=== PATIENT | male | born 1950 | race Caucasian/White ===

== ENCOUNTER 2017-05-25 04:25 | Inpatient (IN) ==
[2017-05-25] MEDS ORDERED: ASPIRIN PO STA (04:34)
--- NOTE | 2017-05-25 04:50 | PROVIDER DOCUMENTATION ---
HPI-General Adult - General Chief Complaint: Fever Stated Complaint: fever Time Seen by Provider: 05/25/17 04:33 Source: EMS Unable to obtain history due to:: urgency Allergies/Adverse Reactions: Patient Allergies Allergy/AdvReac Type Severity Reaction Status Date / Time No Known Allergies Allergy Verified 05/06/17 13:56 Home Medications: Home Medication List Medication Instructions Recorded Confirmed Last Taken Type Aspirin 325 mg PO QHS 05/06/17 05/25/17 05/24/17 21:00 History Calcium Carbonate/Vit D3 [Caltrate 1 each PO DAILY 05/06/17 05/25/17 05/24/17 07 :00 History 600 + D] Clonidine [Catapres] 0.2 mg PO TID 05/06/17 05/25/17 Unknown History Docusate Sodium [Colace] 100 mg PO DAILY 05/06/17 05/25/17 05/24/17 07:00 History Ergocalciferol (Vitamin D2) 50,000 unit PO DAILY 05/06/17 05/25/17 05/24/17 07: 00 History [Vitamin D] LISINOpril [Prinivil] 5 mg PO DAILY 05/06/17 05/25/17 05/24/17 21:00 History Lisinopril 10 mg PO DAILY 05/06/17 05/25/17 05/24/17 07:00 History Metformin [Glucophage] 500 mg PO BID CC 05/06/17 05/25/17 05/24/17 07:00 History Ondansetron HCl [Zofran] 4 mg PO PRN PRN 05/06/17 05/25/17 Unknown History SIMVAstatin [Zocor] 10 mg PO QHS 05/06/17 05/25/17 05/24/17 21:00 History Dextromethorphan HBr/Quinidine 1 each PO BID 05/25/17 05/25/17 05/24/17 21:00 History [Nuedexta 20-10 mg Capsule] - History of Present Illness -Gen Adult Nature of Presenting Problems: Sent here from [facility] for alleged fever. Temperature here is 98.4. They said his temperature there was 103. patient is stable and without complaint.s Location of Pain/Injury: reports: none Pain Radiation: reports: no radiation Quality of Pain: reports: none Severity: reports: mild Onset/Duration: reports: unsure Timing: reports: still present Context/Activities at Onset: reports: none Modifying Factors: improves with: nothing Associated Symptoms: reports: denies symptoms Similar Symptoms Previously?: No Recently seen or treated by another doctor?: No Review of Systems - Adult - REVIEW OF SYSTEMS - ADULT Constitutional: reports: no symptoms reported Eyes: reports: no symptoms reported Ears, Nose, Mouth & Throat: reports: no symptoms reported Cardiovascular: reports: no symptoms reported Respiratory: reports: no symptoms reported Gastrointestinal: reports: no symptoms reported Genitourinary: reports: no symptoms reported Musculoskeletal: reports: no symptoms reported Integumentary: reports: no symptoms reported Neurological: reports: no symptoms reported Psychiatric: reports: no symptoms reported Endocrine: reports: no symptoms reported Hematologic/Lymphatic: reports: no symptoms reported Allergic/Immunologic: reports: no symptoms reported All Other Systems: Reviewed and Negative Past History - Adult - PAST MEDICAL HISTORY-ADULT Review of Records: reports: Old Records Reviewed, Nursing Assessment Review, Medications Reviewed, Social history reviewed & non-contributory. Major Childhood Illnesses: reports: denies history Cardiovascular: reports: HTN, hyperlipidemia Respiratory: reports: denies history Gastrointestinal: reports: denies history Obstetrical/Gynecological: reports: denies history Genitourinary: reports: other (p) Musculoskeletal: reports: denies history Neurological: reports: CVA, stroke deficits, dementia, Seizures/Epilepsy, TIA Endocrine/Immune: reports: denies history Other Conditions: reports: denies history - PRIOR SURGERIES/PROCEDURES Surgical/Procedure History: reports: none - IMMUNIZATION STATUS Childhood Immunizations: See Nurse Assessment Flu Vaccine: See Nurse Assessment - FAMILY HISTORY Family History: reviewed, not pertinent Physical Exam-General - PHYSICAL EXAM-ADULT Initial Vital Signs Reviewed: Yes - CONSTITUTIONAL General Appearance: appears well - EYES Eyes: PERRL/EOMI, pink conjunctivae - HEAD, EARS, NOSE, MOUTH & THROAT HENMT: normocephalic/atraumatic, moist mucous membranes - NECK Neck: non-tender - RESPIRATORY Respiratory: chest non-tender, lungs clear - CARDIOVASCULAR Cardiovascular: regular rate, rhythm - GASTROINTESTINAL (ABDOMEN) Abdominal Exam: normal bowel sounds, non tender - LYMPHATIC Lymphatic: no adenopathy, axilla node tender - MUSCULOSKELETAL Back Exam: normal inspection, no CVA tenderness Extremity: normal range of motion, non-tender - SKIN Integumentary: normal color, normal turgor - NEUROLOGIC 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, grossly normal - PSYCHIATRIC Psych/Mental Status: normal mood/affect, normal thought content Progress - PLAN OF CARE/RESULTS Progress/Plan/Lab Results: Orders Category Date Time Status Cardiac Monitoring DIRECTED Care 05/25/17 04:34 Active Saline Loc NOW Care 05/25/17 04:34 Active CBC WITH ELECTRONIC DIFF [HEME] Stat Lab 05/25/17 04:34 Uncollected CK PROFILE [SP CHEM] Stat Lab 05/25/17 04:34 Uncollected COMPREHENSIVE METABOLIC PANEL [CHEM] Stat Lab 05/25/17 04:34 Uncollected D-DIMER [CHEM] Stat Lab 05/25/17 04:34 Uncollected MAGNESIUM [CHEM] Stat Lab 05/25/17 04:34 Uncollected PRO B-NATRIURETIC PEPTIDE Stat Lab 05/25/17 04:34 Uncollected PROTIME WITH INR [COAG] Stat Lab 05/25/17 04:34 Uncollected PTT [COAG] Stat Lab 05/25/17 04:34 Uncollected TROPONIN T Stat Lab 05/25/17 04:34 Uncollected Aspirin Med 05/25/17 04:34 Discontinued 325 mg PO STAT STA EKG [EKG] Stat Ther 05/25/17 04:34 Ordered Result Diagrams: 05/25/17 04:32 05/25/17 04:32 - CONSULTS/PCP/HOSPITALIST Notification #1 *Consult/PCP/Hospitalist*: Hospitalist Time Discussed: 07:18 Reason/Comments: Admission Consult Disposition: Admit Departure - Departure Date of Disposition Decision: 05/25/17 Time of Disposition Decision: 07:18 DIAGNOSIS: Acute hypernatremia, UTI (urinary tract infection) Disposition: ADMITTED INPATIENT 09 Certified Medical Emergency: Emergent Condition: Fair Referrals and Follow-Ups: Braxton Ruffin MD [Primary Care Provider] - - Critical Care Note This patient required my direct & personal management of CC.: No Attestation - Physician/ ARIA Attestation The physician spent face to face time with patient:: Yes Advanced Practice Provider documentation review:: Supervising physician onsite and consulted in the evaluation and care of this patient. The physician did have a face to face encounter with the patient.
[2017-05-25 04:58] LABS: MANUAL DIFF NEEDED? NO
[2017-05-25 05:00] LABS: BASO% 0.3 % (0.0-0.8); EOS# 0.04 X1000 (0.0-0.7); EOS% 0.3 % (0.0-10.0); HEMATOCRIT 46.7 % (42.0-52.0); HEMOGLOBIN 14.9 g/dL (14.0-18.0); IMM GRAN# 0.02 X1000 (0.0-0.04); IMM GRAN% 0.2 % (0.0-0.5); LYMPH# 1.84 X1000 (1.2-3.4); LYMPH% 15.7 % (20.5-51.1); MCH 28.7 PG (27-31); MCHC 31.9 g/dL (33-37); MCV 89.8 FL (81-99); MONO# 0.62 X1000 (0.11-0.59); MONO% 5.3 % (1.7-9.3); NEUT% 78.2 % (42.2-75.2); PLT 312 X1000 (130-400)
[2017-05-25 05:08] LABS: URINE SOURCE CATH
[2017-05-25 05:18] LABS: INR 1.2; PROTIME 12.7 Seconds (9.2-11.7); PTT 25.2 Seconds (22.0-36.0)
[2017-05-25 05:27] LABS: ALBUMIN 3.4 g/dL (3.5-5.0); CALCIUM 9.6 mg/dL (8.8-10.2); POTASSIUM 3.9 mmol/L (3.5-5.1); TOTAL BILIRUBIN 0.53 mg/dL (0.20-1.00); TOTAL PROTEIN 8.8 g/dL (6.3-8.3)
[2017-05-25 05:33] LABS: BILIRUBIN URINE NEGATIVE (NEGATIVE); BLOOD URINE LARGE (NEGATIVE); COLOR ORANGE; GLUCOSE URINE NEGATIVE (NEGATIVE); LEUKOCYTES URINE LARGE (NEGATIVE); NITRITE URINE NEGATIVE (NEGATIVE); PH URINE 5.5; PROTEIN URINE 50 mg/dL (NEGATIVE); SP GRAVITY URINE 1.018; TURBIDITY URINE HAZY (CLEAR); UROBILINOGEN URINE NORMAL (NORMAL)
[2017-05-25 05:35] LABS: URINE MICRO REVIEW NEEDED? YES
[2017-05-25 05:45] LABS: UR EPITHELIAL CELLS <10 /HPF (<10); URINE BACTERIA 4+ /HPF; URINE CULTURE NEEDED? YES; URINE RBC TNTC /HPF (<10); URINE WBC TNTC /HPF (<10)
[2017-05-25] MEDS ORDERED: NS 500 ML IV ONE (05:47)
[2017-05-25] MEDS ORDERED: GENTAMICIN 80 MG/NS 80 MG/50 ML IVPB IV ONE (05:48)
[2017-05-25 05:53] LABS: URINE CASTS WHITE CELL PRESENT
[2017-05-25] MEDS ORDERED: POTASSIUM CHLORIDE 10 MEQ in D5W 1,000 ML IV ONE (07:11)
[2017-05-25 08:32] LABS: PROTEIN CREAT RATIO 0.3; UR CREAT RANDOM 186.8 mg/dL (14-26); UR PROT RANDOM 55.5 mg/dL
[2017-05-25] MEDS ORDERED: D5W 1,000 ML IV ONE (08:34)
[2017-05-25] MEDS ORDERED: ZOFRAN PO PRN (08:34)
[2017-05-25] MEDS ORDERED: CATAPRES PO SCH (09:00)
--- NOTE | 2017-05-25 09:09 | EKG Report ---
Test Performed on : 05/25/2017 08:48:54 AM Test Reason : irregular rhythm Blood Pressure : / mmHG Vent. Rate : 102 BPM Atrial Rate : 102 BPM P-R Int : 152 ms QRS Dur : 094 ms QT Int : 402 ms P-R-T Axes : 010 -54 056 degrees QTc Int : 523 ms Sinus tachycardia. with premature supraventricular complexes. Left axis deviation Prolonged QT Abnormal ECG When compared with ECG of 25-MAY-2017 08:48, (Unconfirmed) No significant change was found Confirmed by Jer Bettencourt MD ([id number]) on 05/27/2017 6:24:51 PM
--- NOTE | 2017-05-25 09:35 | Diag Imaging Result Doc PS360 ---
EXAM: CT HEAD W/O CONTRAST TECHNIQUE: Dose reduction protocol was used. INDICATION: ams/worsening dysphagia COMPARISON: 05/06/2017 FINDINGS: There is diffuse brain atrophy and there is extensive white matter microangiopathy, stable. There are a few chronic lacunar infarcts in the periventricular white matter, brainstem, and deep wolf matter, stable. There is no definite acute infarct given the limited sensitivity of CT versus MRI. There is no discrete intracranial mass, mass effect, or intracranial hemorrhage. The surrounding soft tissues and bony structures are essentially unremarkable. IMPRESSION: Stable advanced chronic changes. No definite acute intracranial pathology by CT. Electronically signed by Rachid 05/25/2017 9:33 AM
--- NOTE | 2017-05-25 10:13 | HISTORY AND PHYSICAL ---
CHIEF COMPLAINT: Reported fever. HISTORY OF PRESENT ILLNESS: Mr. Hebert is a 67-year-old, gentleman with a history of a CVA in the past with persistent left hemiparesis, aphasia, and dysphagia, who presents from [facility] with a reported fever of 103 degrees Fahrenheit. The patient is aphasic and is unable to give any type of history. His family is at the bedside but the history is very limited. Apparently, he was sent for a fever but when he got here, his temperature was noted to be 98.9. However, when labs were checked, he was noted to have a sodium of 162, an acute kidney injury with a creatinine of 1.5, a mildly elevated white count, and a significant urinary tract infection. The family does report that he has been more lethargic over the past few days and weeks. He has also been having significantly worse dysphagia. He coughs quite often when he eats. In the ER, his vitals are stable. He is slightly tachycardic but his blood pressure, pulse oximetry, and temperature are all within normal limits. As such, he is going to be admitted to the floor for further treatment and evaluation. PAST MEDICAL HISTORY: 1. CVA with left-sided hemiparesis, aphasia, and dysphagia. 2. Diabetes mellitus. 3. Hypertension. 4. BPH. 5. Dementia. SURGICAL HISTORY: None. SOCIAL HISTORY: There is no apparent history of tobacco, alcohol, or drug use. Patient is a Gnosticism and he has advanced directive refusing any blood products if needed. FAMILY HISTORY: Unknown. REVIEW OF SYSTEMS: Unable to obtain. ALLERGIES: No known drug allergies. HOME MEDICATIONS: Aspirin 325 mg daily, calcium carbonate, vitamin D3 one daily , clonidine 0.2 mg t.i.d., dextromethorphan quinidine 1 b.i.d., Colace 100 mg daily, vitamin D2 50, 000 units p.o. daily, lisinopril 10 mg daily, Glucophage 500 mg b.i.d., Zofran 4 mg as needed, Zocor 10 mg p.o. at bedtime. PHYSICAL EXAMINATION: VITAL SIGNS: Blood pressure is 143/84, heart rate is 101, respiratory rate is 16, O2 saturation 98% on 2 L, temperature is 97.7 degrees. GENERAL: This is a chronically ill and disheveled appearing, 67-year-old, male lying in the hospital bed in no acute distress. NEUROLOGIC: The patient is aphasic. He has left-sided cathleen-neglect along with left-sided hemiparesis. He does follow commands on the right with muscle strength 4/5 in the upper and lower right extremities. HEENT: Head is atraumatic and normocephalic. His pupils are equal, round, and reactive to light. Oral mucosa is dry. Trachea is midline. There is no JVD. No carotid bruits. CHEST: Clear to auscultation bilaterally. CV: Irregular, S1 and S2 noted, a 2/6 murmur noted. GI: Soft, nondistended. Bowel sounds positive. EXTREMITIES: No edema, clubbing, or cyanosis. Pulses diminished but palpable. DIAGNOSTIC DATA: WBC 11.7, hemoglobin 14.9, hematocrit 46.7, platelet count 312 ,000. INR 1.2. Sodium 162, potassium 3.9, chloride 121, CO2 24, anion gap 16, BUN 51, creatinine 1.5, glucose 287, magnesium 3, and calcium 9.6. Total bilirubin 0.53, AST 16, ALT 15, alkaline phosphatase 80. CK 190, troponin 0.023. Protein 8.8, albumin 3.4. TSH 0.81. Lactic acid 1.4. UA shows significant urinary tract infection. ASSESSMENT AND PLAN: 1. Early sepsis: The patient is tachycardic and has a white count of almost 12 and a source of urinary tract infection. His lactic acid is within normal limits and his hemodynamics are stable. We will continue intravenous fluids and Rocephin for his urinary tract infection. Cultures are pending. 2. Hypernatremia: This is likely secondary to decreased oral intake of fluids. We will check urine studies and continue with D5 W intravenous fluids that have been started in the emergency room. We will recheck another BMP tonight and then daily. 3. Acute kidney injury: Likely prerenal in the setting of lisinopril and metformin use. We will hold on those drugs, continue intravenous fluids, and check urine electrolytes. If he does not have an improvement within the next 12-24 hours, would consider renal ultrasound. 4. Urinary tract infection: As above. 5. Worsening dysphagia: We are going to check a head CT and a barium swallow as well as obtain speech and social service consults. We will keep him nothing per oral for now. 6. Hypertension: We will hold his lisinopril and continue his clonidine. 7. Diabetes Mellitus: Add SSI and PBS, check Ha1c in the AM. 8. Deep vein thrombosis prophylaxis will be provided with Lovenox. The patient is a do-not- resuscitate level 1 and if he should need blood products, those will be refused as he is a Gnosticism. Dictated by TOBIAS Jha for Rodrigo Morales MD Addendum: Patient seen and examined by myself. Agree with TOBIAS note. It reflects my assessment and plan. Patient was sent from group home for fever. Here in ER he was found to have a severe dehydration, early sepsis, hyponatremia, urinary tract infection and acute renal failure. Will start IV antibiotics, D5W and will do swallow test. I informed family that if he fails swallow evaluation we may need to place PEG tube. Will also check BMP daily. Because of blood pressure in the 110 and 130 I prefer to hold any antihypertensive agents. Will continue to monitor closely. cc: TOBIAS Jha MD [facility]
[2017-05-25] MEDS: ROCEPHIN 1 GM in NS 50 ML IV SCH (10:28)
[2017-05-25] MEDS: HUMALOG SUBQ SCH ×3 (11:52→21:05)
[2017-05-25] MEDS ORDERED: ZOFRAN IV PRN (12:51)
--- NOTE | 2017-05-25 13:59 | Diag Imaging Result Doc PS360 ---
EXAM: BA SWALLOW W/VIDEO SPEECH THER INDICATION: worsening dysphagia TECHNIQUE: COMPARISON: None. FINDINGS: Due to the patient's condition, there was suboptimal positioning. Also, the patient could not swallow an adequate amount of contrast. As such, this study is very suboptimal and virtually nondiagnostic. There is no discrete aspiration with the very small amount of contrast that could be administered. There did appear to be delayed swallowing reflex, however. IMPRESSION: Very limited study due to the patient's condition. Please see above discussion and speech pathology for full details. Electronically signed by Rachid 05/25/2017 1:57 PM
[2017-05-25] MEDS ORDERED: DIFLUCAN 150 MG/NS 150 MG/75 ML IVPB IV ONE (14:30)
[2017-05-25] MEDS: D5W 1,000 ML IV SCH ×2 (17:14→21:40)
[2017-05-25 18:14] LABS: AGAP 13; BUN 42 mg/dL (8-22); CALCIUM 9.4 mg/dL (8.8-10.2); CHLORIDE 123 mmol/L (98-107); COSMO 336; POTASSIUM 3.6 mmol/L (3.5-5.1); SODIUM 159 mmol/L (136-145); TCO2 23 mmol/L (25-35)
[2017-05-25] MEDS ORDERED: ASPIRIN PO SCH (21:00)
[2017-05-26] MEDS ORDERED: VANCOMYCIN 1 GM/NS 1 GM/250 ML IVPB IV ONE (02:23)
[2017-05-26] MEDS ORDERED: VANCOMYCIN IV PER PHARMACY MISC SCH (02:30)
[2017-05-26] MEDS ORDERED: VANCOMYCIN IV ONE (03:00)
[2017-05-26] MEDS ORDERED: D5W IV ONE (03:00)
[2017-05-26] MEDS: HUMALOG SUBQ SCH ×4 (05:58→21:40)
[2017-05-26 07:09] LABS: HEMATOCRIT 43.2 % (42.0-52.0); HEMOGLOBIN 13.4 g/dL (14.0-18.0); MCV 93.5 FL (81-99); RBC 4.62 XMIL (4.7-6.1)
[2017-05-26 07:39] LABS: AGAP 11; BUN 36 mg/dL (8-22); CALCIUM 8.7 mg/dL (8.8-10.2); CHLORIDE 120 mmol/L (98-107); COSMO 330; HDL 19 mg/dL (35-55); HEMOGLOBIN A1C 7.2 % (4.8-6.0); LDL 74 mg/dL; POTASSIUM 3.3 mmol/L (3.5-5.1); SODIUM 156 mmol/L (136-145); TCO2 25 mmol/L (25-35); TRIGLYCERIDES 88 mg/dL (39-160); VLDL 18 mg/dL
[2017-05-26] MEDS: D5W 1,000 ML IV SCH ×2 (08:40→21:36)
[2017-05-26] MEDS: ROCEPHIN 1 GM in NS 50 ML IV SCH (08:42)
[2017-05-26] MEDS: LOVENOX SUBQ SCH (08:42)
[2017-05-26] MEDS: POTASSIUM CHLORIDE 20 MEQ/SWI 20 MEQ/100 ML IVPB IV SCH ×2 (11:02→13:22)
--- NOTE | 2017-05-26 12:55 | PROGRESS NOTE ---
DATE: 05/26/2017 SUBJECTIVE: This patient is resting comfortably in bed. He is able to answer my questions by moving his head for yes or no. He is not talking to me. His blood sodium is high at 156 and this patient is on D5W. We will continue with the same management. He has a past medical history of CVA with left-sided hemiparesis, aphasia, and dysphagia. We will get another swallow evaluation to see if this patient is able to eat. His blood sugar has been elevated. I will put this patient on Lantus 15 and I will recheck his blood sugar and continue with sliding scale insulin. We have a positive urine culture that showed gram negative rods, so I will stop the vancomycin and I will continue with the Zosyn. I had a large conversation with his daughter and she states that they were confused about the DNR status. So for now they want to put this patient full code. She will talk to her mom again and then they will decide what kind of DNR they want. OBJECTIVE: Vital signs: Temperature 98.9 degrees, pulse 101, respiratory rate 14, blood pressure 131/88, oxygen saturation 94% on room air. HEENT: Head normocephalic. No trauma. PERRLA. Neck: Supple. No JVD. No masses. Central trachea. Chest: Clear to auscultation. No wheezing. No rales. Abdomen: Soft, nontender, nondistended. No hepatosplenomegaly. Extremities: No edema. No clubbing. No cyanosis. Decreased muscle mass. Neurological: The patient is alert. He is answering my questions by moving his head for yes or no. He is not talking. He has left-sided hemiparesis, aphasia, and dysphagia. LABORATORY: WBC 10.3, hemoglobin 13.4, hematocrit 43.2, platelets 225,000. Sodium 156, potassium 3.3, chloride 120, bicarbonate 25, BUN 36, creatinine 1.1, glucose 226, calcium 8.7, hemoglobin A1c 7.2, folate 6.2. ASSESSMENT AND PLAN: 1. Urinary tract infection. I do not think this patient was septic but I think he has been improving a little bit since he is getting antibiotics and fluids. I have stopped the vancomycin because we have a positive urine culture that showed gram-negative rods. I will continue with ceftriaxone. 2. Hypernatremia. Likely secondary to decreased fluid intake. I will continue with D5W and I will continue monitoring the blood sodium. 3. Acute kidney injury, likely prerenal. Continue with the same management. Lisinopril has been held. 4. Urinary tract infection. As above. 5. Possible worsening dysphagia. We will get a formal swallow evaluation to see if this patient can eat. 6. Hypertension. For now I will hold his blood pressure medications. He has been on clonidine and lisinopril. His blood pressure right now is around 130s and 140s. Probably tomorrow if this patient is doing better I will put this patient back on his medications. 7. Type 2 diabetes. Continue with sliding scale insulin and pattern blood sugar. Hemoglobin A1c 7.2. I have placed this patient on Lantus 15 daily. Will monitor. 8. Deep vein thrombosis prophylaxis with Lovenox. 9. This patient used to be do not resuscitate level 1 but the daughter wants to stop this and put this patient on full code for now. She will discuss this with her mom again. 10. Previous cerebrovascular accident with left-sided hemiparesis, aphasia and dysphagia aware. 11. Benign prostatic hypertrophy, stable. cc: Fredy Sanders MD
[2017-05-26] MEDS: LANTUS SUBQ SCH (14:30)
[2017-05-26] MEDS ORDERED: ASPIRIN PO SCH (21:00)
[2017-05-27] MEDS ORDERED: VANCOMYCIN 1,550 MG in NS 250 ML IV SCH (03:00)
[2017-05-27] MEDS: HUMALOG SUBQ SCH ×4 (06:23→22:32)
[2017-05-27] MEDS: D5W 1,000 ML IV SCH ×3 (06:30→18:18)
[2017-05-27 07:20] LABS: HEMOGLOBIN 12.3 g/dL (14.0-18.0); MCH 29.1 PG (27-31); MCHC 30.8 g/dL (33-37); MCV 94.6 FL (81-99); MPV 10.2 FL (7.4-10.4); RBC 4.23 XMIL (4.7-6.1)
[2017-05-27 07:56] LABS: AGAP 14; BUN 28 mg/dL (8-22); CHLORIDE 116 mmol/L (98-107); COSMO 313; POTASSIUM 3.9 mmol/L (3.5-5.1); SODIUM 152 mmol/L (136-145); TCO2 22 mmol/L (25-35)
[2017-05-27] MEDS: LANTUS SUBQ SCH ×2 (08:22→12:46)
[2017-05-27] MEDS: LOVENOX SUBQ SCH (08:40)
[2017-05-27] MEDS: ROCEPHIN 1 GM in NS 50 ML IV SCH (08:40)
--- NOTE | 2017-05-27 08:59 | Diag Imaging Result Doc PS360 ---
Chest x-ray two views - 05/25/2017 INDICATION: Chest pain TECHNIQUE: COMPARISON: 06/02/2016 FINDINGS: The lungs are clear. Heart size is normal. No pneumothorax or pleural effusion. IMPRESSION: Negative exam. Electronically signed by Colby Valentino 05/27/2017 8:57 AM
--- NOTE | 2017-05-27 13:40 | PROGRESS NOTE ---
DATE: 05/27/2017 SUBJECTIVE: This patient is resting comfortably in bed. He is able to answer my questions by moving his head for yes or no. He is following commands and today he is talking a little bit to me. His blood sodium is getting better. Two days ago it was 159, then was yesterday 156, and today 152. We will continue with the same management for now. This patient had a swallow evaluation yesterday with the following results. Very limited study due to this patient's condition. Also this patient could not swallow an adequate amount of contrast. As such, this study is very suboptimal and visually nondiagnostic. There is not discrete aspiration with the very small amount of contrast that could be administrated but probably there is a delayed swallowing reflex, however. OBJECTIVE: Vital Signs: Temperature 97.8 degrees, pulse 79, respiratory rate 12, blood pressure 140/82, oxygen saturation 100% on room air. HEENT: Head normocephalic. No trauma. PERRLA. Facial deviation to the left. Neck: Supple. No masses. Central trachea. Chest: Clear to auscultation. No wheezing. No rales. Abdomen: Soft, nontender, nondistended. No hepatosplenomegaly. Extremities: No edema. No clubbing. No cyanosis. Decreased muscle mass. Neurological: The patient is alert. He is following commands. He is answering some of my questions. LABORATORY: WBC 8.8, hemoglobin 12.3, hematocrit 40, platelets 195,000. Sodium 152, potassium 3.9, chloride 116, bicarbonate 22, BUN 28, creatinine 1, glucose 201, calcium 9. ASSESSMENT AND PLAN: 1. Urinary tract infection secondary to Escherichia coli, sensitive to ceftriaxone. I will continue with the same antibiotics and fluid. 2. Hypernatremia. This is likely secondary to fluid intake. I will continue for now with D5W and I will continue to monitor the blood sodium. This is getting better slowly. 3. Acute kidney injury, likely prerenal. Lisinopril has been stopped. I will place probably a consult. Kidney function is about the same. Continue with the same management. 4. Possible worsening dysphagia. This patient had a swallow evaluation. See the report above. Tomorrow he will get another swallow study. For now, I will start this patient on ice chips. 5. Hypertension. His blood pressure has been stable, in the 140s. 6. Type 2 diabetes. Continue with sliding scale insulin and Lantus, pattern blood sugar as well. 7. Deep vein thrombosis prophylaxis with Lovenox. 8. This patient is full code as per the . 9. Previous cerebrovascular accident with left-sided hemiparesis, aphasia, and dysphagia. Aware. 10. Benign prostatic hypertrophy, stable. 11. This patient has a positive culture for coagulase-negative Staphylococcus. This is likely a contaminant. cc: Fredy Sanders MD
[2017-05-28] MEDS: D5W 1,000 ML IV SCH ×4 (02:00→09:40)
[2017-05-28] MEDS: HUMALOG SUBQ SCH ×3 (06:30→22:13)
[2017-05-28 07:06] LABS: HEMATOCRIT 36.7 % (42.0-52.0); HEMOGLOBIN 11.8 g/dL (14.0-18.0); MCH 29.7 PG (27-31); MCHC 32.2 g/dL (33-37); MCV 92.4 FL (81-99); MPV 10.5 FL (7.4-10.4); RBC 3.97 XMIL (4.7-6.1)
[2017-05-28 07:19] LABS: AGAP 12; BUN 18 mg/dL (8-22); CHLORIDE 109 mmol/L (98-107); COSMO 295; POTASSIUM 3.7 mmol/L (3.5-5.1); SODIUM 145 mmol/L (136-145); TCO2 24 mmol/L (25-35)
[2017-05-28] MEDS: LANTUS SUBQ SCH (09:41)
[2017-05-28] MEDS: LOVENOX SUBQ SCH (09:41)
[2017-05-28] MEDS: ROCEPHIN 1 GM in NS 50 ML IV SCH (09:41)
[2017-05-28] MEDS: CLINIMIX E 4.25%-5% SOLUTION 1,000 ML IV SCH (11:42)
--- NOTE | 2017-05-28 15:18 | Diag Imaging Result Doc PS360 ---
EXAM: BA SWALLOW W/VIDEO SPEECH THER INDICATION: Dysphagia TECHNIQUE: COMPARISON: 05/25/2017 FINDINGS: The swallowing reflex was markedly delayed there is extensive barium: In the piriform sinuses with barium of all consistencies. With pudding consistency barium, there was aspiration eliciting a delayed cough reflex. IMPRESSION: 1.Markedly delayed contrast bolus propagation with extensive pooling of barium and aspiration of pudding consistency barium. 2.Please see speech pathology report for full details. Electronically signed by Rachid 05/28/2017 3:15 PM
--- NOTE | 2017-05-28 18:51 | PROGRESS NOTE ---
DATE: 05/28/2017 SUBJECTIVE: This patient is resting comfortably in bed. When I evaluated this patient he was getting a swallow evaluation and it looked like he was choking with ice chips, and he had some trouble with swallowing. I do believe he has some kind of oral dysphagia. I asked for a formal modified swallow evaluation. We will follow that to see if this patient needs a PEG tube. OBJECTIVE: Vital Signs: Temperature 97.9 degrees, pulse 75, respiratory rate 17, blood pressure 147/80, O2 saturation 99 on room air. HEENT: Normocephalic. No trauma. PERRLA. Facial deviation to the left. Neck: Supple. No JVD. No masses. Central trachea. Chest: Clear to auscultation. No wheezing. No rales. Abdomen: Soft, nontender, nondistended. No hepatosplenomegaly. Extremities: No edema. No clubbing. No cyanosis. Decreased muscle mass. Neurological Examination: The patient is alert. He is following commands. He is answering some of my questions. He has left-sided hemiparesis. LABORATORY: WBC 6.7, hemoglobin 11.8, hematocrit 36.7, platelets 182,000. Sodium 145, potassium 3.7, chloride 109, bicarbonate 24, BUN 18, creatinine 0.8, glucose 184, calcium 8. ASSESSMENT AND PLAN: 1. Urinary tract infection secondary to E. coli sensitive to ceftriaxone. Continue with the same antibiotics. 2. Hypernatremia. This is likely secondary to decreased fluid intake. This patient has been placed on D5W and today the sodium is normal. 3. Acute kidney injury likely prerenal. His kidney function is normal today. 4. Worsening dysphagia. The patient has a formal modified swallow* evaluation today and I will follow that. Probably this patient will need a PEG tube. 5. Hypertension. Continue with the same management. 6. Type 2 diabetes. Continue with sliding scale insulin and Lantus. 7. Deep vein thrombosis prophylaxis with Lovenox. 8. This patient is full code as per the . 9. Previous cerebrovascular accident with left-sided hemiparesis, aphasia and dysphasia. 10. Benign prostatic hypertrophy stable. 11. This patient has a positive culture for coagulase-negative Staphylococcus. This is likely a contaminant. 12. Overall this patient is doing fine. The only problem that he has is severe dysphagia. I will follow the modified swallow evaluation. I will talk to the family about the results and probably we need to get a PEG tube placed. cc: Fredy Sanders MD
[2017-05-29] MEDS: CLINIMIX E 4.25%-5% SOLUTION 1,000 ML IV SCH ×3 (03:26→18:06)
[2017-05-29] MEDS: HUMALOG SUBQ SCH ×3 (06:38→16:00)
[2017-05-29 07:17] LABS: AGAP 13; BUN 15 mg/dL (8-22); CALCIUM 8.9 mg/dL (8.8-10.2); CHLORIDE 110 mmol/L (98-107); COSMO 294; POTASSIUM 3.8 mmol/L (3.5-5.1); SODIUM 146 mmol/L (136-145); TCO2 23 mmol/L (25-35)
[2017-05-29] MEDS ORDERED: INSULIN PEN NEEDLES ONE (07:46)
[2017-05-29] MEDS: LOVENOX SUBQ SCH (09:55)
[2017-05-29] MEDS: ROCEPHIN 1 GM in NS 50 ML IV SCH (09:55)
[2017-05-29] MEDS: LANTUS SUBQ SCH (09:56)
[2017-05-29] MEDS ORDERED: VANCOMYCIN IV PER PHARMACY MISC SCH (14:45)
[2017-05-29] MEDS: VANCOMYCIN 1,350 MG in NS 250 ML IV SCH (18:07)
--- NOTE | 2017-05-29 18:58 | PROGRESS NOTE ---
DATE: 05/29/2017 SUBJECTIVE: This patient is resting comfortably in bed. Family members at the bedside. We did a formal modified swallow evaluation yesterday and he did not pass. So for this I will consult gastroenterology department for evaluation for possible PEG tube placement. I talked to his about this and she agreed with the procedure. OBJECTIVE: Vital Signs: Temperature 99.4 degrees, pulse 89, respiratory rate 20, blood pressure 133/78, oxygen saturation 96 on room air. HEENT: Head normocephalic. No trauma. PERRLA. Facial deviation to the left. Neck: Supple. No JVD. No masses. Central trachea. Chest: Clear to auscultation. No wheezing. No rales. Abdomen: Soft, nontender, nondistended. No hepatosplenomegaly. Extremities: No edema. No clubbing. No cyanosis. Decreased muscle mass. Neurological: The patient is alert. He is following commands. He is answering some of my questions. He has left-sided hemiparesis. LABORATORY: Sodium 146, potassium 3.8, chloride 110, bicarbonate 23, BUN 15, creatinine 0.9, glucose 153, calcium 8.9. ASSESSMENT AND PLAN: 1. Urinary tract infection secondary to Escherichia coli sensitive to ceftriaxone. Continue with the same treatment. 2. Severe dysphagia. I have consulted Gastroenterology Department for possible PEG tube placement. 3. Hypernatremia stable. Today the blood sodium is 146. Will continue to monitor. 4. Acute kidney injury likely prerenal. His kidney function is better. 5. Hypertension. Continue with the same treatment. 6. Type 2 diabetes. Continue with sliding scale insulin and Lantus. 7. Deep vein thrombosis prophylaxis with Lovenox. 8. This patient is full code as per the . 9. Previous cerebrovascular accident with left-sided hemiparesis, aphasia and dysphagia. 10. Benign prostatic hypertrophy, stable. 11. This patient has a positive culture for coagulase-negative Staphylococcus. This is likely a contaminant. cc: Fredy Sanders MD
[2017-05-30] MEDS: HUMALOG SUBQ SCH ×5 (03:53→21:49)
[2017-05-30] MEDS: CLINIMIX E 4.25%-5% SOLUTION 1,000 ML IV SCH (06:32)
--- NOTE | 2017-05-30 07:45 | CONSULTATION ---
DATE OF CONSULTATION: 05/29/2017 REASON FOR REFERRAL: Dysphagia, aspiration. HISTORY OF PRESENT ILLNESS: This is a 67-year-old, gentleman with a history of CVA with left hemiparesis, aphasia. Patient resides at [facility]. is at the bedside. She states he had onset of fever and was brought into the hospital. He was found to have urinary tract infection secondary to E. coli. He has been on antibiotics. reports that over the last several weeks he has had increased cough when eating and trouble swallowing. A modified barium swallow was done that showed markedly delayed contrast bolus with extensive pooling of barium and aspiration of pudding consistency barium. PAST MEDICAL HISTORY: CVA with left-sided hemiparesis, aphasia, and dysphagia, diabetes, hypertension, BPH, dementia. SOCIAL HISTORY: He resides at [facility]. Currently the patient is [employer] and refuses blood products. REVIEW OF SYSTEMS: Per HPI. ALLERGIES: No known drug allergies. HOME MEDICATIONS: Zocor 10 mg every night. Zofran 4 mg as needed. Glucophage 500 mg twice a day. Lisinopril 10 mg daily. Prinivil 5 mg daily. Vitamin D 01299 units daily. Colace 100 mg daily. Nuedexta 20/10 twice a day. Clonidine 0.2 three times a day. Caltrate 600+ D daily. Vital signs: Temperature 99.4 degrees, pulse 89, respirations 20, blood pressure 133/78. Generally: Patient is awake. He does follow commands with the right hand. He nods his head to questions. His is at the bedside. Respiratory: Lung sounds essentially clear. Abdomen: Is soft, nontender. Positive bowel sounds. Extremities: No lower extremity edema noted. DIAGNOSTIC RESULTS/LABORATORY: Hematology: WBC 6.72, hemoglobin 11.8, hematocrit 36.7, MCV 92.4, platelets 182,000. Chemistry: Sodium 146, potassium 3.8, chloride 110, CO2 of 23, BUN 15, creatinine 0.9, glucose 153. Modified barium swallow as noted above showing aspiration. ASSESSMENT AND PLAN: 1. E. coli urinary tract infection. 2. Dysphagia. 3. History of cerebrovascular accident. 4. Abnormal barium swallow with noted aspiration. 5. Other medical problems. PLAN: Continue symptomatic treatment and supportive care. Continue IV Clinimix for nutrition. I have discussed with the about the option of placing a PEG tube. She voices understanding and agrees if that is necessary. I have discussed this case with Dr. Lopez. He will be pension adviser over the weekend. We will possibly plan for PEG placement on Thursday and we will continue to follow. Further plans to be made as needed. Thank you for this consult. Dictated by TOBIAS Nazario for Riki Lopez MD cc: TOBIAS Oswald MD
[2017-05-30] MEDS: LOVENOX SUBQ SCH (08:21)
[2017-05-30] MEDS: ROCEPHIN 1 GM in NS 50 ML IV SCH (08:21)
[2017-05-30] MEDS: LANTUS SUBQ SCH (08:22)
[2017-05-30] MEDS: VANCOMYCIN 1,350 MG in NS 250 ML IV SCH (17:14)
--- NOTE | 2017-05-30 19:47 | PROGRESS NOTE ---
DATE: 05/30/2017 SUBJECTIVE: Mr. Hebert is resting in bed comfortably. I spoke to his daughter. The risks, benefits, alternatives of PEG tube placement were discussed. She understood and agreed to proceed. Patient has failed bedside swallowing studies. The best approach would be to proceed with EGD and PEG tube placement. That would be scheduled for Thursday. I have explained to them the findings and plan. They understood. In the meantime, I would continue on Clinimix and will follow. PEG tube will be placed on Thursday. cc: Riki Lopez MD
--- NOTE | 2017-05-30 20:20 | PROGRESS NOTE ---
DATE: 05/30/2017 SUBJECTIVE: This patient is resting comfortably in bed. Family members at the bedside. We did a formal modified swallow evaluation a couple of days ago and he did not pass, so Gastroenterology Department evaluated this patient and he will get a PEG tube placed on Thursday. OBJECTIVE: Vital Signs: Temperature 97.3 degrees, pulse 89, respiratory rate 16, blood pressure 156/85, oxygen saturation 98% on room air. HEENT: Head normocephalic. No trauma. PERRLA. Facial deviation to the left. Neck: Supple. No JVD. No masses. Central trachea. Chest: Clear to auscultation. No wheezing. No rales. Abdomen: Soft, nontender, nondistended. No hepatosplenomegaly. Extremities: No edema. No clubbing. No cyanosis. Decreased muscle mass. Neurological: The patient is alert. He is following commands. He is answering some of my questions. He has left-sided hemiparesis. LABORATORY: Blood sugar was 140. ASSESSMENT AND PLAN: 1. Urinary tract infection secondary to E. coli sensitive to ceftriaxone. Continue with the same management. 2. Severe dysphagia. Gastroenterology Department will place a PEG tube on Thursday. 3. Hypernatremia, stable. 4. Tomorrow I will ask for a BMP. 5. Acute kidney injury, likely prerenal. Resolved. 6. Hypertension. We will continue with the same management. 7. Type 2 diabetes. Blood sugar is controlled. 8. Deep vein thrombosis prophylaxis with Lovenox. 9. Previous cerebrovascular accident with left-sided hemiparesis, aphasia and dysphagia, aware. 10. Benign prostatic hypertrophy. Stable. 11. This patient is full code as per the . 12. This patient has 2 positive blood cultures that showed coagulase-negative Staphylococcus. I have placed this patient on vancomycin. Probably tomorrow will consult Infectious Disease Department to evaluate this patient for this bacteremia. 13. Bacteremia. As above. cc: Fredy Sanders MD
[2017-05-31] MEDS: CLINIMIX E 4.25%-5% SOLUTION 1,000 ML IV SCH ×4 (02:37→17:59)
[2017-05-31] MEDS: HUMALOG SUBQ SCH ×5 (06:32→21:21)
[2017-05-31 07:28] LABS: AGAP 10; BUN 19 mg/dL (8-22); CALCIUM 8.8 mg/dL (8.8-10.2); CHLORIDE 110 mmol/L (98-107); COSMO 288; POTASSIUM 4.1 mmol/L (3.5-5.1); SODIUM 142 mmol/L (136-145); TCO2 22 mmol/L (25-35)
[2017-05-31] MEDS: ROCEPHIN 1 GM in NS 50 ML IV SCH (08:30)
[2017-05-31] MEDS: LOVENOX SUBQ SCH (08:30)
[2017-05-31] MEDS: LANTUS SUBQ SCH (08:30)
[2017-05-31] MEDS: VANCOMYCIN 1,350 MG in NS 250 ML IV SCH (16:55)
--- NOTE | 2017-05-31 18:51 | PROGRESS NOTE ---
DATE: 05/31/2017 Mr. Hebert is scheduled for EGD and PEG tube placement tomorrow. Had an opportunity to talk to his today. Explained to her the procedure, risks, benefits, alternative. She understood. All of Her pertinent questions were answered. Again, he is scheduled for tomorrow. cc: Riki Lopez MD
--- NOTE | 2017-05-31 20:22 | PROGRESS NOTE ---
DATE: 05/31/2017 SUBJECTIVE: This patient is resting comfortably in bed. Family members at the bedside. We did a formal modified swallow evaluation a few days ago and he did not pass. Gastroenterology Department evaluated this patient. The plan is to place a PEG tube, but this patient now has bacteremia. He had a positive culture that showed coagulase-negative Staphylococcus x2. So for now, we will cancel the PEG tube placement until this patient is safe and without bacteremia. OBJECTIVE: Vital Signs: Temperature 97.7 degrees, pulse 87, respiratory rate 20, blood pressure 131/80, O2 saturation 98% on room air. HEENT: Head normocephalic. No trauma. PERRLA. Neck: Supple. No JVD. No masses. Central trachea. Chest: Clear to auscultation. No wheezing. No rales. Abdomen: Soft, nontender, nondistended. No hepatosplenomegaly. Extremities: No edema. No clubbing. No cyanosis. Decreased muscle mass. Neurological: The patient is alert. He is following commands. He is answering some of my questions. He has left-sided hemiparesis. LABORATORY: Sodium 142, potassium 4.1, chloride 110, bicarbonate 22, BUN 19, creatinine 0.7, glucose 139, calcium 8.8. ASSESSMENT AND PLAN: 1. Urinary tract infection secondary to E. coli sensitive to ceftriaxone. Continue with the same management. 2. Bacteremia. Now we have a positive 2/2 blood culture that showed coagulase-negative Staphylococcus. I have placed this patient on vancomycin, and tomorrow hopefully I will consult Infectious Disease Department for evaluation. 3. Severe dysphagia. Gastroenterology Department is planning to put a PEG tube, but it is going to be postponed because of his bacteremia. 4. Hypernatremia. Stable. Resolved. 5. Acute kidney injury. Resolved. 6. Type 2 diabetes. Controlled. 7. Deep vein thrombosis prophylaxis with Lovenox. 8. Previous history of cerebrovascular accident, aphasia and dysphagia. Aware with left-sided hemiparesis. 9. Benign prostatic hypertrophy. Stable. 10. This patient is Full Code. cc: Fredy Sanders MD
[2017-06-01] MEDS: HUMALOG SUBQ SCH ×4 (06:23→20:29)
[2017-06-01 06:33] LABS: MANUAL DIFF NEEDED? NO
[2017-06-01 06:41] LABS: BASO% 0.2 % (0.0-0.8); EOS# 0.05 X1000 (0.0-0.7); EOS% 0.9 % (0.0-10.0); HEMATOCRIT 37.7 % (42.0-52.0); HEMOGLOBIN 12.4 g/dL (14.0-18.0); IMM GRAN# 0.03 X1000 (0.0-0.04); IMM GRAN% 0.5 % (0.0-0.5); LYMPH# 1.51 X1000 (1.2-3.4); LYMPH% 25.9 % (20.5-51.1); MCH 28.6 PG (27-31); MCHC 32.9 g/dL (33-37); MCV 87.1 FL (81-99); MONO# 0.52 X1000 (0.11-0.59); MONO% 8.9 % (1.7-9.3); NEUT% 63.6 % (42.2-75.2); PLT 215 X1000 (130-400); RBC 4.33 XMIL (4.7-6.1)
[2017-06-01 06:51] LABS: AGAP 12; BUN 19 mg/dL (8-22); CALCIUM 8.6 mg/dL (8.8-10.2); CHLORIDE 105 mmol/L (98-107); COSMO 285; SODIUM 140 mmol/L (136-145); TCO2 23 mmol/L (25-35)
[2017-06-01] MEDS: CLINIMIX E 4.25%-5% SOLUTION 1,000 ML IV SCH ×2 (07:17→20:29)
[2017-06-01] MEDS: LANTUS SUBQ SCH (09:19)
[2017-06-01] MEDS: LOVENOX SUBQ SCH (09:19)
--- NOTE | 2017-06-01 13:56 | CONSULTATION ---
DATE OF CONSULTATION: 06/01/2017 CONCLUSION: The patient has 2 separate blood cultures, which appeared to be for the same organism, namely coagulase-negative Staph. Both blood cultures were drawn on the same day. I agree with Dr. Sandoval that this represents a true bacteremia the origin of which is uncertain to me. RECOMMENDATIONS: I agree with treating the patient with vancomycin. I discontinued Rocephin and I have ordered an echocardiogram. DISCUSSION: The patient is unable to provide a history. No family member is present. According to the admitting history and physical, the patient was at [facility] and developed a temperature of 103 degrees. He was sent into the hospital. He has not had fever here. LABS: His CBC shows a white count of 5820, hemoglobin 12.4, platelet count of 215,000. Creatinine 0.7. GFR is greater than 60. Two separate blood cultures from May 25 are growing coag-negative Staph. Chest x-ray is clear. Two blood cultures were drawn yesterday. The results of which are pending. CT scan of the head showed no acute intracranial pathology. Chest x-ray had clear lung hassan. PAST MEDICAL HISTORY: According to the history and physical, patient's past medical history positive for a CVA with left-sided hemipareses, aphagia and dysphagia. Patient also has diabetes mellitus, hypertension, benign prostatic hypertrophy and dementia. Hyperlipidemia. SURGICAL HISTORY: None. SOCIAL HISTORY: The patient was living at [facility]. There is no history of cigarette smoking, alcohol use or drug abuse. FAMILY HISTORY: Said to be unknown. REVIEW OF SYSTEMS: Unable to obtain. ALLERGIES: The patient has no known drug allergies. MEDICATIONS: Taken at the [facility] include the following. Simvastatin, Zofran, Glucophage, lisinopril, vitamin D, Colace, dextromethorphan, clonidine, calcium and aspirin. PHYSICAL EXAMINATION: Vital Signs: Temperature is 97.6, pulse 84, respirations 12, blood pressure 135/96. General: This is a fairly healthy-appearing, elderly male. He is in no acute distress. HEENT: His eyes were open. He appeared to track with his eyes. He did not speak when I requested him to. There was no drainage noted from the nose or ears. Neck: Supple. Lungs: Clear to auscultation. Cardiovascular: Heart rate was regular. I did not hear a murmur. The patient had a small amount of edema in his legs. Abdomen: Soft and nontender. Neurologic: The patient has a left hemipareses, There is no tremor. He did not speak when I requested him too. He did not shake his head yes or no when I asked him questions. Integument: No rash or decubitus ulcer noted. Thank you for the consult. cc: Jhon Wall MD
--- NOTE | 2017-06-01 16:00 | Diag Imaging Result Doc PS360 ---
EXAM: CHEST/ABD TUBE PLACEMENT HISTORY: NG tube placement TECHNIQUE: AP portable upright NG tube placement at 1550 COMMENT: There is an NG tube coiled in the fundus of the stomach. IMPRESSION: NG tube as described. Electronically signed by Kirit Greene 06/01/2017 3:58 PM
--- NOTE | 2017-06-01 16:14 | PROGRESS NOTE ---
DATE: 06/01/2017 SUBJECTIVE: This patient is resting comfortably in bed. Family members at the bedside. We did a formal modified swallow evaluation a few days ago and he did not pass. Gastroenterology department evaluated this patient. The plan is to place a PEG tube. Once the bacteremia is resolved. He has a positive culture that showed coagulase-negative Staphylococcus aureus x2 and infectious disease department is on board. OBJECTIVE: Vital Signs: Temperature 97.6 degrees, pulse 84, respiratory rate 12, blood pressure 135/96, oxygen saturation 100% on room air. HEENT: Head normocephalic. No trauma. PERRLA. Neck: Supple. No JVD. No masses. Central trachea. Chest: Clear to auscultation. No wheezing. No rales. Abdomen: Soft, nontender, nondistended. No hepatosplenomegaly. Extremities: No edema. No clubbing. No cyanosis. Decreased muscle mass. Neurological: The patient is alert. He is following commands. He is answering some of my questions. He has left- sided hemiparesis and dysarthria. LABORATORY: WBC 5.8, hemoglobin 12.4, hematocrit 37.7, platelets 215,000. Sodium 140, potassium 4, chloride 105, bicarbonate 23, BUN 19, creatinine 0.9, glucose 154, calcium 8.6. ASSESSMENT AND PLAN: 1. Urinary tract infection secondary to Escherichia coli, sensitive to ceftriaxone but this has been discontinued by infectious disease department. He already received 7 days of antibiotics. 2. Bacteremia. He has a positive blood culture that showed 2/2 coagulase-negative Staphylococcus. He has been on vancomycin. Infectious disease department is following this patient. 3. Severe dysphagia. GI department will put a PEG tube once the bacteremia has resolved. 4. Hypernatremia, resolved. 5. Acute kidney injury, resolved. 6. Type 2 diabetes, controlled. 7. Deep vein thrombosis prophylaxis with Lovenox. 8. Previous history of cerebrovascular accident with aphasia and dysphagia. Aware. Left-sided hemiparesis as well. 9. Benign prostatic hypertrophy, stable. 10. This patient is full code. 11. This patient has bacteremia secondary to coagulase-negative Staph. The plan is to get a PEG tube once this patient is without bacteremia. I will put today an NG tube and I will consult the dietitian to provide the feeding tubes. cc: Fredy Sanders MD
[2017-06-01] MEDS: VANCOMYCIN 1,500 MG in NS 250 ML IV SCH (17:31)
[2017-06-02] MEDS: HUMALOG SUBQ SCH ×4 (06:20→20:39)
[2017-06-02 07:03] LABS: AGAP 12; ALBUMIN 3.1 g/dL (3.5-5.0); ALKALINE PHOSPHATASE 70 U/L (32-122); BUN 19 mg/dL (8-22); CALCIUM 8.9 mg/dL (8.8-10.2); CHLORIDE 106 mmol/L (98-107); COSMO 286; GOT 19 U/L (10-34); GPT 19 U/L (10-44); MAGNESIUM 2.1 mg/dL (1.5-2.7); POTASSIUM 4.1 mmol/L (3.5-5.1); SODIUM 141 mmol/L (136-145); TCO2 23 mmol/L (25-35); TOTAL BILIRUBIN 0.22 mg/dL (0.20-1.00); TOTAL PROTEIN 7.1 g/dL (6.3-8.3)
--- NOTE | 2017-06-02 07:24 | Diag Imaging Result Doc PS360 ---
CHEST/ABD TUBE PLACEMENT - 06/02/2017 INDICATION: NG tube placement TECHNIQUE: COMPARISON: 06/01/2017 FINDINGS: The nasogastric tube has been pulled back somewhat. The tip is still in the stomach but the most proximal sidehole is directly behind the heart. Recommend advancing by about 7 cm. IMPRESSION: Nasogastric tube has been pulled back. Recommend advancement. Electronically signed by Colby Valentino 06/02/2017 7:22 AM
[2017-06-02] MEDS ORDERED: INSULIN PEN NEEDLES ONE (07:50)
[2017-06-02] MEDS: LOVENOX SUBQ SCH (09:21)
[2017-06-02] MEDS: LANTUS SUBQ SCH (09:22)
--- NOTE | 2017-06-02 09:42 | Diag Imaging Result Doc PS360 ---
CHEST/ABD TUBE PLACEMENT - 06/02/2017 09 27 INDICATION: confirm ng tube placement TECHNIQUE: COMPARISON: FINDINGS: The nasogastric tube has been advanced and is now fully in the stomach in good position. There is constipation throughout the proximal colon. No bowel obstruction or free air. IMPRESSION: Nasogastric tube in good position in the stomach. Electronically signed by Colby Valentino 06/02/2017 9:40 AM
[2017-06-02] MEDS: CLINIMIX E 4.25%-5% SOLUTION 1,000 ML IV SCH (10:00)
--- NOTE | 2017-06-02 10:45 | PROGRESS NOTE ---
DATE: 06/02/2017 SUBJECTIVE: This patient is resting comfortably in bed. He is now getting feeding tubes. During the night, the NG tube was pulled out, but we put this back pain, and is in the right position. No family members at the bedside. OBJECTIVE: Vital Signs: Temperature 97.6 degrees, pulse 82, respiratory rate 20, blood pressure 151/88, oxygen saturation 99 on room air. HEENT: Head normocephalic. No trauma. PERRLA. Neck: Supple. No JVD. No masses. Central trachea. Chest: Clear to auscultation. No wheezing. No rales. Abdomen: Soft, nontender, nondistended. No hepatosplenomegaly. Extremities: No edema. No clubbing. No cyanosis. Decreased muscle mass. Neurological: The patient is alert. He is following commands. He is answering some of my questions. He has a left-sided hemiparesis and dysarthria. LABORATORY: Sodium 141, potassium 4.1, chloride 106, bicarbonate 23, BUN 19, creatinine 0.7, glucose 146, calcium 8.9. Albumin 3.1. ASSESSMENT AND PLAN: 1. Urinary tract infection secondary to Escherichia coli. He already received 7 days of antibiotics. Will monitor. 2. Bacteremia. He has a positive blood culture that showed 2/2 coagulase negative Staphylococcus. He has been on vancomycin and infectious disease department following this patient. 3. Severe dysphagia. Gastrointestinal department will put a percutaneous endoscopic gastrostomy tube once the bacteremia has resolved. 4. Hypernatremia, resolved. 5. Acute kidney injury, resolved. 6. Type 2 diabetes, controlled. 7. Deep vein thrombosis prophylaxis with Lovenox. 8. Previous history of cerebrovascular accident with aphasia and dysphagia, aware. Left-sided hemiparesis as well. 9. Benign prostatic hypertrophy is stable. 10. This patient is full code. 11. Nutritional status. We started this patient on feeding tubes. 12. Physical deconditioning. Continue with physical therapy. cc: Fredy Sanders MD
--- NOTE | 2017-06-02 11:19 | Diag Imaging Result Doc PS360 ---
CHEST/ABD TUBE PLACEMENT - 06/02/2017 1055 INDICATION: reconfirm ng tube placement (patient displaced) TECHNIQUE: COMPARISON: 06 03 FINDINGS: The nasogastric tube has been pulled back somewhat. The tip is still in the stomach but the proximal sidehole is in the distal esophagus. IMPRESSION: Nasogastric tube has been been pulled back somewhat. Advanced by about 5 cm for optimum position. Electronically signed by Colby Valentino 06/02/2017 11:16 AM
[2017-06-02] MEDS: VANCOMYCIN 1,500 MG in NS 250 ML IV SCH (12:12)
--- NOTE | 2017-06-02 12:19 | ECHO REPORT ---
ORDER DATE: 06/01/2017 MEASUREMENTS: Left ventricular end-diastolic diameter 3.2, end-systolic diameter 2.2, left atrium 3.1, aortic root 4, septal thickness 1.8, posterior wall thickness 1.8. SUMMARY: 1. Fair quality study. 2. Mild aortic valve sclerosis demonstrated with adequate aortic valve opening evident. Peak gradient across the left ventricular outflow tract and aortic valve is 31 mmHg. The majority of this gradient appears to be the result of left ventricular outflow tract gradient of at least 28 mmHg. There is mild aortic regurgitation. Mitral valve leaflets appear mildly thickened. Systolic anterior motion of anterior mitral leaflet demonstrated with associated mild to moderate posteriorly directed mitral regurgitation. Tricuspid valve and pulmonic valve are without structural abnormality with mild tricuspid regurgitation and trace pulmonic insufficiency. The estimated systolic PA pressure by Doppler is 30-35 mmHg. The aortic root is mildly enlarged. 3. Normal left ventricular chamber size with moderate concentric left hypertrophy is demonstrated. There is a mild degree of asymmetric hypertrophy of the basal septum. The left ventricle appears hyperdynamic with estimated left ejection fraction greater than 70%. No regional wall motion abnormalities are evident. Doppler demonstrates a peak gradient in the left ventricular outflow tract at rest of 28 mmHg. Systolic anterior motion of the mitral leaflet is evident as well. Doppler suggests grade 1 left ventricular diastolic dysfunction. Left atrium, right atrium, and right ventricle are normal in size with grossly preserved right ventricular systolic function. 4. No pericardial effusion. 5. Appearance of inferior vena cava suggests normal central venous pressure. CONCLUSIONS: 1. Mild aortic valve sclerosis without stenosis with mild aortic regurgitation. 2. Systolic anterior motion of mitral valve demonstrated with mild to moderate posteriorly directed mitral regurgitation. 3. Mild tricuspid regurgitation with estimated systolic PA pressure of 30-35 mmHg. 4. Moderate left ventricular hypertrophy with some asymmetric hypertrophy of the basal septum with hyperdynamic left ventricle and dynamic LV outflow tract gradient of 28 mmHg, and associated systolic anterior motion of mitral leaflets. 5. Grade 1 left ventricular diastolic dysfunction. 6. Mild aortic root enlargement. cc: MD Jhon Mae MD
--- NOTE | 2017-06-02 17:49 | PROGRESS NOTE ---
DATE: 06/02/2017 PRESENT ILLNESS: The patient has a coagulase negative Staph bacteremia and an Escherichia coli urinary tract infection. MEDICATIONS: The patient has been on vancomycin IV now for 4 days and I have restarted cefepime. This will be day 8 of treatment with that agent. PHYSICAL EXAMINATION: Vital Signs: Temperature is 97.4 degrees, pulse 84, respirations 18, blood pressure 137/83. General: This is a fairly healthy-appearing elderly male. He is in no acute distress. Lungs: Clear to auscultation. Cardiovascular: Regular heart rate with a soft systolic murmur. Abdomen: Soft and nontender. Neurologic: Patient is awake. He did not follow request to move his extremities. There was no tremor. LAB AND X-RAY: The patient's creatinine is 0.7. GFR is greater than 60. Two blood cultures are coagulase negative Staph. Prior urine culture grew E. coli. An echocardiogram showed no vegetations. ASSESSMENT AND PLAN: The patient has bacteremia and a urinary tract infection. My plan is to continue vancomycin and cefepime. COMORBIDITIES: He has had a stroke with a left-sided hemipareses, aphagia and dysphagia. The patient also has diabetes mellitus and benign prostatic hypertrophy. cc: Jhon Wall MD
[2017-06-02] MEDS: MAXIPIME 2 GM in NS 100 ML IV SCH (18:39)
[2017-06-03] MEDS: CLINIMIX E 4.25%-5% SOLUTION 1,000 ML IV SCH ×2 (00:10→17:45)
[2017-06-03] MEDS: VANCOMYCIN 1,500 MG in NS 250 ML IV SCH (04:15)
[2017-06-03] MEDS: MAXIPIME 2 GM in NS 100 ML IV SCH ×2 (05:30→17:45)
[2017-06-03 06:46] LABS: MANUAL DIFF NEEDED? NO
[2017-06-03] MEDS: HUMALOG SUBQ SCH ×3 (06:49→17:46)
[2017-06-03 06:51] LABS: BASO% 0.2 % (0.0-0.8); EOS# 0.06 X1000 (0.0-0.7); EOS% 1.1 % (0.0-10.0); HEMATOCRIT 35.5 % (42.0-52.0); HEMOGLOBIN 11.9 g/dL (14.0-18.0); LYMPH# 1.58 X1000 (1.2-3.4); LYMPH% 29.6 % (20.5-51.1); MCHC 33.5 g/dL (33-37); MCV 86.4 FL (81-99); MONO# 0.53 X1000 (0.11-0.59); MONO% 9.9 % (1.7-9.3); MPV 10.5 FL (7.4-10.4); NEUT% 59.2 % (42.2-75.2); PLT 219 X1000 (130-400); RBC 4.11 XMIL (4.7-6.1)
[2017-06-03 07:16] LABS: AGAP 8; BUN 17 mg/dL (8-22); CALCIUM 8.6 mg/dL (8.8-10.2); CHLORIDE 105 mmol/L (98-107); COSMO 276; POTASSIUM 3.8 mmol/L (3.5-5.1); SODIUM 137 mmol/L (136-145); TCO2 24 mmol/L (25-35)
[2017-06-03] MEDS ORDERED: LIPOSYN 20% 500 ML IV SCH (09:00)
[2017-06-03] MEDS: LANTUS SUBQ SCH (10:04)
[2017-06-03] MEDS: LOVENOX SUBQ SCH (10:05)
[2017-06-03] MEDS: NORVASC PO SCH (10:06)
--- NOTE | 2017-06-03 11:51 | PROGRESS NOTE ---
DATE: 06/03/2017 SUBJECTIVE: This patient is resting comfortably in bed. He pulled out 3 or 4 times his NG tube, so I had to stop his feeding tube, and I continued with Clinimix. We had a new blood culture from 05/31/2017 and so far, has been negative. I have contacted Dr. Wall from Infectious Disease Department to see when we can see place the PEG tube. He states that he can be placed any time because the blood culture has been negative for more than 48 hours, so I contacted Dr. Lopez to let him know now we can place the PEG tube. He will schedule this patient. OBJECTIVE: Vital Signs: Temperature 97.6 degrees, pulse 90, respiratory rate 16, blood pressure 170/90, O2 saturation 100% on room air. HEENT: Normocephalic. No trauma. PERRLA. Neck: Supple. No JVD. No masses. Central trachea. Chest: Clear to auscultation. No wheezing. No rales. Abdomen: Soft, nontender, nondistended. No hepatosplenomegaly. Extremities: No edema. No clubbing. No cyanosis. Decreased muscle mass. Neurological: The patient is alert. He is following commands. She is answering some of my questions. He has left-sided hemiparesis and dysarthria. LABORATORY: WBC 5.3, hemoglobin 11.9, hematocrit 35.5, platelets 219,000. Sodium 137, potassium 3.8, chloride 105, bicarbonate 24, BUN 17, creatinine 0.7, glucose 102, calcium 8.6. ASSESSMENT AND PLAN: 1. Bacteremia. He has a positive blood culture that showed 2/2 coagulase-negative staphylococcus. He has been on vancomycin, and Infectious Disease Department following this patient. So far, the new blood culture from the of this month has been negative. 2. Urinary tract infection secondary to Escherichia coli. He already received 7 days of antibiotics. Will monitor. 3. Severe dysphagia. GI Department will put a PEG tube. Dr. Lopez has been notified that now we can do the procedure. 4. Hypernatremia, resolved. 5. Acute kidney injury, resolved. 6. Type 2 diabetes, controlled. 7. Deep vein thrombosis prophylaxis with Lovenox. 8. Previous history of cerebrovascular accident with aphasia, dysphagia, and left-sided hemiparesis, aware. 9. Benign prostatic hypertrophy, stable. 10. This patient is full code. 11. Nutritional status. This patient was on feeding tubes, but he pulled out the tube 3-4 times. Family aware of this. I will continue with Clinimix. 12. Physical deconditioning. Continue physical therapy. This patient has coagulase-negative staphylococcus bacteremia. He is being treated with vancomycin. We have a new blood culture from is 05/31/2017 that have been negative so far. Dr. Wall agreed with a PEG tube placement since the blood cultures have been negative. Dr. Lopez had been notified about this, and he will schedule this patient for a PEG tube placement. cc: Fredy Sanders MD
--- NOTE | 2017-06-03 15:54 | PROGRESS NOTE ---
DATE: 06/03/2017 SUBJECTIVE: I have spoken with the . She states he has pulled out his NG feeding tube several times. OBJECTIVE: Vital Signs: Temperature 97.6 degrees, respirations 20, pulse is 80 , blood pressure 177/95. General: The patient is awake, in no acute distress. Respiratory: Lung sounds essentially clear. Abdomen: Soft, nontender. Positive bowel sounds. Extremities: Left-sided hemiparesis. DIAGNOSTIC RESULTS: Laboratory: Hematology: WBC 5.34, hemoglobin 11.9, hematocrit 35.5, MCV 86.4, platelets 219,000. Chemistry: Sodium 137, potassium 3.8, chloride 105, CO2 24, BUN 17, creatinine 0.7, glucose 102. ASSESSMENT: 1. Bacteremia. He had a negative blood culture on May 31. 2. Urinary tract infection, secondary to Escherichia coli. He has received antibiotics. 3. Dysphagia. We have been consulted to place a feeding tube. We were waiting on his infection to improve. PLAN: He has had a recent negative blood culture. I have spoken with Dr. Wall, with Infectious Disease, who states that it is okay to proceed with PEG tube placement. We will coordinate that with OR scheduling and proceed when able. He has pulled out his NG tube on several occasions. He now has Clinimix infusing. Further plans will be made as needed. Dictated by TOBIAS Nazario for Riki Lopez MD cc: TOBIAS Oswald MD [facility]
--- NOTE | 2017-06-03 17:33 | PROGRESS NOTE ---
DATE: 06/03/2017 PRESENT ILLNESS: The patient has coagulase negative Staphylococcus bacteremia and an Escherichia coli urinary tract infection. MEDICATIONS: The patient has been on vancomycin now for 5 days and he has been on cefepime for 9 days. PHYSICAL EXAMINATION: Vital Signs: Temperature is 97.6 degrees, pulse 80, respirations 20, blood pressure 177/95. General: This is an ill-appearing, elderly male. He is in no acute distress. Lungs: Clear to auscultation. Cardiovascular: Heart rate is regular. There is a soft systolic murmur. Abdomen: Soft and nontender. Neurologic: He is awake. He appears to have a left hemiparesis. LAB AND X-RAY: The patient's CBC today showed a white count of 5340, hemoglobin 11.9, platelet count 219,000, creatinine is 0.7. ASSESSMENT AND PLAN: Patient has bacteremia and urinary tract infection. I plan to continue antibiotics for a total of 14 days of treatment. COMORBIDITIES: Include a stroke with left-sided hemiparesis, aphasia, dysphasia, diabetes mellitus, benign prostatic hypertrophy and the patient is elderly. cc: Jhon Wall MD
[2017-06-04] MEDS: VANCOMYCIN 1,700 MG in NS 250 ML IV SCH ×2 (00:17→17:16)
[2017-06-04] MEDS: HUMALOG SUBQ SCH ×4 (00:59→22:43)
[2017-06-04] MEDS: NORVASC PO SCH (00:59)
[2017-06-04] MEDS: MAXIPIME 2 GM in NS 100 ML IV SCH ×2 (05:29→17:16)
[2017-06-04] MEDS: CLINIMIX E 4.25%-5% SOLUTION 1,000 ML IV SCH (09:10)
[2017-06-04] MEDS: LANTUS SUBQ SCH (09:10)
[2017-06-04] MEDS ORDERED: DIPRIVAN 1% ONE (12:08)
[2017-06-04] MEDS ORDERED: XYLOCAINE-MPF 2% ONE (12:08)
[2017-06-04] MEDS ORDERED: ROBINUL ONE (12:10)
[2017-06-04] MEDS ORDERED: XYLOCAINE-MPF 1% 5 ML ONE (12:19)
[2017-06-04] MEDS ORDERED: XYLOCAINE-MPF 1% ONE (12:21)
[2017-06-04] MEDS ORDERED: EPINEPHRINE SYRINGE ONE (12:41)
--- NOTE | 2017-06-04 15:57 | PROGRESS NOTE ---
DATE: 06/04/2017 PRESENT ILLNESS: The patient has an E. coli urinary tract infection. The patient has 2 positive blood cultures, one is for a coagulase-negative staph and the other which is for staph epidermidis. I have asked the Microbiology Laboratory to thoroughly work up the coag-negative staph isolate. If it turns out to be the same organism as the staph epidermidis in the other blood culture, then I would say this is a true bacteremia. If it is not the same organism that is in the other blood culture, then I would say both of the staph organisms are contaminants and do not require treatment. MEDICATION: This is day 6 of treatment with vancomycin, and day 10 of treatment with cefepime. The vancomycin is for the staph bacteremia, and the cefepime is for E. coli urinary tract infection. PHYSICAL EXAMINATION: Vital Signs: Temperature is 96.8 degrees, pulse 87, respirations 20, blood pressure 113/75. Generally: A ill-appearing, elderly male. He is in no acute distress. Lungs: Clear to auscultation. Cardiovascular: Heart rate is regular, with a soft systolic murmur. Abdomen: Soft and nontender. Neurologic: The patient is awake. He does not answer questions. He does not follow requests to move his extremities. LABORATORY AND X-RAY: There are no new CBC or BMP results today. The blood cultures are as mentioned above, and the micro lab is going to work up the isolate that was identified as coagulase-negative staph, so that we can see if it is the same organism as the staph epidermidis that was isolated. ASSESSMENT AND PLAN: For right now, I am going to assume that the patient has a true Staphylococcus bacteremia and urinary tract infection, and I plan to continue both antibiotics. COMORBIDITIES: The patient had a stroke with resulting left hemiparesis.. He has aphagia, dysphagia, diabetes mellitus, benign prostatic hypertrophy and he is elderly as well. cc: Jhon Wall MD
--- NOTE | 2017-06-04 17:01 | PROGRESS NOTE ---
DATE: 06/04/2017 SUBJECTIVE: Patient is resting comfortably in bed. No acute issues overnight as per nursing staff. From yesterday, he pulled out his NG tube 3-4 times. OBJECTIVE: Vital Signs: Temperature 96.8 degrees, heart rate 87, respiratory rate 20, blood pressure 119/74, O2 saturation 98% on room air. General examination: This is a chronically ill- looking and frail 67-year-old male, lying in bed in no acute distress. HEENT: Head is normocephalic, atraumatic. Neck: Supple. No JVD noted. No carotid bruits. Cardiovascular: S1, S2 heard. No murmurs, gallops, or rubs. Regular rate and rhythm. Respiratory: Clear bilaterally to auscultation. No work of breathing or using accessory muscles. Abdomen: Soft, nontender to palpation. Bowel sounds present. No organomegaly. PEG tube in place. Extremities: No edema, clubbing or cyanosis. Decreased muscle mass. Neurological: Patient is alert, follows commands. He does not answer any questions today. He has a left-sided hemiparesis and dysarthria from a previous stroke. DIAGNOSTIC DATA: There are no labs from today, but from yesterday, BMP and CBC were completely normal except mild anemia at 11.9. ASSESSMENT AND PLAN: 1. Staphylococcus bacteremia. Actually 2 out of 2 blood cultures returned positive for coagulase negative. Microbiology has checked both and they confirmed that this is a Staphylococcus epidermidis, so patient is going to be treated as bacteremia secondary to Staphylococcus epidermidis. Currently patient is on vancomycin for this condition and Dr. Wall is following this patient. We will follow his recommendations. 2. Urinary tract infection secondary to E. coli. Patient is on cefepime for this condition. Today is day #8. We will continue with the same management. 3. Severe dysphagia. Finally Gastroenterology was able to place a PEG tube. We will follow recommendations from them. 4. Hypernatremia, resolved. 5. Acute kidney injury, resolved. 6. Type 2 diabetes mellitus, controlled. 7. History of cerebrovascular accident with residual left hemiparesis and aphasia and dysphagia. Aware. 8. Benign prostatic hypertrophy. Aware. 9. Nutritional status. He was on Clinimix and from tomorrow if everything is okay from GI standpoint we will start using PEG tube feeding. 10. Code Status. Full Code. 11. Physical deconditioning. We will order physical therapy. cc: Rodrigo Morales MD
--- NOTE | 2017-06-04 17:37 | OPERATIVE NOTE ---
PROCEDURE DATE: 06/04/2017 PROCEDURE PERFORMED: Esophagogastroduodenoscopy and percutaneous endoscopic gastrostomy (PEG) tube placement. PROVIDER: Riki Lopez MD MEDICATION USED: MAC as per Anesthesia. SCOPES USED: Olympus [id number]. HISTORY: This is a 67-year-old gentleman who has CVA and has oropharyngeal dysphagia. He has failed bedside swallowing studies. EGD was done for PEG tube placement for alternate mode of providing nutrition. DESCRIPTION OF PROCEDURE: Informed consent was obtained from the patient's and his daughter. Procedure risks, benefits, and alternatives were explained in layman's terms. They understood. All of their pertinent questions were answered. The patient was brought to the endoscopy unit and was premedicated as per Anesthesia. After adequate sedation, while he was lying in the supine position, the gastroscope was introduced into the posterior pharynx and advanced under direct vision into the esophagus. Through the esophagus, it was advanced to the stomach. The stomach was insufflated. The pylorus was identified. The scope was then passed through the pylorus into the duodenal bulb and then the 2nd part of the duodenum. Both appeared to be normal. The scope was withdrawn back into the stomach, where the stomach was insufflated. An area of maximum indentation and transillumination was noted and marked on the anterior abdominal wall, which was about 2 cm below the subcostal margin, about a centimeter left of the midline. The spot was then cleansed, sterilized, and draped using universal precautions. The area was then anesthetized using 1% lidocaine with epinephrine. After adequate anesthesia, a centimeter long incision was made onto the anterior abdominal wall. Using the needle with trocar, the stomach was accessed from the anterior abdominal wall and the needle was then removed, leaving the trocar in place. A nylon guidewire was passed through the trocar into the stomach where the distal end was grasped using a snare and it was removed along with the scope. A PEG 24 was then attached onto the distal end of the guidewire and it was deployed into the stomach by pull-through method without any difficulty. A dressing was applied and the scope was then reintroduced back into the stomach, where the internal bumper was noted to be in an adequate position. The scope was then removed. The patient tolerated the procedure well. No complications were noted. The patient was then transferred to the recovery area in stable condition. IMPRESSION: Normal esophagogastroduodenoscopy, PEG 24 placed. RECOMMENDATION: We will start taking care of the PEG site and we will resume tube feedings within 3-4 hours and further plans made according to his progress. cc: Riki Lopez MD
[2017-06-05] MEDS: CLINIMIX E 4.25%-5% SOLUTION 1,000 ML IV SCH ×2 (02:53→11:18)
[2017-06-05] MEDS: MAXIPIME 2 GM in NS 100 ML IV SCH ×2 (05:53→16:54)
[2017-06-05] MEDS: HUMALOG SUBQ SCH ×4 (06:41→21:59)
[2017-06-05] MEDS: VANCOMYCIN 1,700 MG in NS 250 ML IV SCH (11:18)
[2017-06-05] MEDS: LANTUS SUBQ SCH (11:19)
--- NOTE | 2017-06-05 12:49 | PROGRESS NOTE ---
DATE: 06/05/2017 SUBJECTIVE: Patient is in no acute distress. Nurse states he is tolerating his feedings well. I have talked with the about the PEG placement. OBJECTIVE: Vital Signs: Temperature 97.5 degrees, pulse 101, respirations 20, blood pressure 142/92. General: Patient is awake. Abdomen: PEG tube, site dressing removed from the abdomen and cleaned with Betadine. Bumper loosened slightly so it is not tight against the skin. Abdominal binder is in place. ABDOMEN AND PELVIS: Continue tube feedings and continued to keep head of bed elevated. During tube feedings. Clean site daily. Keep area clean and dry. Keep abdominal binder in place, since patient is known to pull tubes out. We will continue to follow during his hospital course and be available as needed. Dictated by TOBIAS Nazario for Riki Lopez MD cc: TOBIAS Oswald MD
--- NOTE | 2017-06-05 14:18 | PROGRESS NOTE ---
DATE: 06/05/2017 PRESENT ILLNESS: The patient has an E. coli urinary tract infection and staph bacteremia. MEDICATIONS: This is day 11 of treatment with cefepime and day 7 of treatment with vancomycin. PHYSICAL EXAMINATION: Vital Signs: Temperature is 97.5 degrees, pulse 101, respirations 20, blood pressure 142/92. General: This is a somewhat ill-appearing, elderly male. He is more alert today and answers questions by shaking his head and he did follow requests to move his right arm and leg. Lungs: Clear to auscultation. Cardiovascular: Regular heart rate. Abdomen: The patient had a PEG tube placed yesterday. The tube site is not draining. LAB AND X-RAY: There is no x-ray for today and there is no lab work for today either. ASSESSMENT AND PLAN: I plan to continue vancomycin for the patient's Staph bacteremia and cefepime for the patient's E. coli urinary tract infection. COMORBIDITIES: Stroke with left hemipareses, aphagia, dysphagia, diabetes mellitus, benign prostatic hypertrophy, and being elderly. cc: Jhon Wall MD
--- NOTE | 2017-06-05 14:22 | PROGRESS NOTE ---
DATE: 06/05/2017 SUBJECTIVE: The patient does not talk, but answers questions by moving the head. He denies any abdominal pain or vomiting. No acute issues noted as per nursing staff overnight. OBJECTIVE: Vital Signs: Temperature 97.5, heart rate 101, respiratory rate 20, blood pressure 142/92, O2 saturation 100% on room air. General: This is a chronically looking, frail 67-year- old, male, lying in bed, in no acute distress. HEENT: Head is normocephalic, atraumatic. Neck: Supple. No JVD noted. No carotid bruits. No lymphadenopathy. Cardiovascular: S1, S2 heard. No murmurs, gallops, or rubs. Regular rate and rhythm. Respiratory: Clear bilaterally to auscultation. No work of breathing or using accessory muscles. Abdomen: Soft, nontender to palpation. Bowel sounds present. No organomegaly. PEG tube in place and getting PEG tube feedings. Extremities: No clubbing, cyanosis, or edema. Decreased muscle mass. Neurological: Patient is awake and follows basic commands. He has residual left- sided hemiparesis and dysarthria from previous stroke. LABORATORY DATA: There are no labs from today. ASSESSMENT AND PLAN: 1. Staphylococcus bacteremia. Being treated with vancomycin as per the directives by Dr. Wall. We will continue following his recommendations. 2. Urinary tract infection secondary to E. coli. Patient is on cefepime as per Dr. Wall recommendation. We will continue with the same management. 3. Severe dysphagia, status post PEG tube placement. Currently, he is receiving PEG tube feedings at 30 mL/hour. The patient is tolerating feedings. No high residuals. We will continue with the same management. 4. Hyponatremia resolved. 5. Acute kidney injury, resolved. 6. Diabetes mellitus type 2. That condition is under control. We will continue with the sliding scale insulin. 7. History of cerebrovascular accident with residual left hemiparesis, aphasia and dysphagia, aware. 8. Benign prostatic hypertrophy. Aware. 9. Nutritional status. The patient is receiving PEG tube feedings. 10. Code status: Full code. 11. Physical deconditioning. Physical therapy is seeing this patient. cc: Rodrigo Morales MD
[2017-06-05 16:43] LABS: AGAP 9; BUN 16 mg/dL (8-22); CALCIUM 9.2 mg/dL (8.8-10.2); CHLORIDE 102 mmol/L (98-107); COSMO 271; MAGNESIUM 2.1 mg/dL (1.5-2.7); POTASSIUM 4.2 mmol/L (3.5-5.1); SODIUM 134 mmol/L (136-145); TCO2 23 mmol/L (25-35)
[2017-06-06] MEDS: CLINIMIX E 4.25%-5% SOLUTION 1,000 ML IV SCH ×2 (02:41→17:11)
[2017-06-06] MEDS: MAXIPIME 2 GM in NS 100 ML IV SCH ×2 (04:57→17:10)
[2017-06-06] MEDS: VANCOMYCIN 1,700 MG in NS 250 ML IV SCH (05:37)
[2017-06-06] MEDS: HUMALOG SUBQ SCH ×4 (06:00→21:33)
[2017-06-06] MEDS: LANTUS SUBQ SCH (10:12)
[2017-06-06] MEDS: PRINIVIL GT SCH (14:05)
--- NOTE | 2017-06-06 16:04 | PROGRESS NOTE ---
DATE: 06/06/2017 SUBJECTIVE: The patient does not talk, but answered questions by moving his head. Denies any nausea, vomiting, abdominal pain. No acute issues noted as per nursing staff overnight. OBJECTIVE: Vital Signs: Temperature 97.5 degrees, heart rate 90, respiratory rate 20, blood pressure 168/98, O2 saturation 100% on 2 L nasal cannula. General Examination: This is a chronically ill-looking and frail, 67-year-old, male, lying in bed in no acute distress. HEENT: Head is normocephalic, atraumatic. Neck: Supple. No JVD noted. No carotid bruits. No lymphadenopathy. No thyromegaly. Cardiovascular exam: S1, S2 heard. No murmurs, gallops, or rubs. Regular rate and rhythm. Respiratory exam: Clear bilaterally to auscultation. No work of breathing or using accessory muscles. Abdomen: Soft. PEG tube present. No signs of erythema around the PEG tube placed. Extremities: No clubbing, cyanosis, or edema. Decreased muscle mass. Neurological exam: Patient is awake and follows basic commands, but he had a residual left-sided hemiparesis on this artery from previous stroke. LABORATORY DATA: None from today. ASSESSMENT AND PLAN: 1. Staphylococcus intermedius bacteremia. Currently, patient is being treated with vancomycin as per Dr. Wall' recommendation. 2. Urinary tract infection secondary to Escherichia coli. Patient is on cefepime per Dr. Wall' recommendation. We will continue with the same management. 3. Dysphagia status post percutaneous endoscopic gastrostomy tube placement. Patient has had a percutaneous endoscopic gastrostomy tube placed 2 days ago, and since then he has been started on percutaneous endoscopic gastrostomy tube feedings. He currently is tolerating 30 mL/hour. At this point, we will continue with the same management. 4. Hyponatremia, resolved. 5. Diabetes mellitus type 2. We will continue with sliding scale insulin. 6. History of cerebrovascular accident with residual left hemiparesis, aphasia and dysphagia. Aware. 7. Benign prostatic hypertrophy. Aware. 8. Nutritional status: The patient receiving percutaneous endoscopic gastrostomy tube feedings. 9. Code status: Full code. Physical deconditioning. Physical therapy following this patient. DISPOSITION: There are too many issues due to this patient's bacteremia staphylococcus and nutritional status. At this point, as an inpatient things are well controlled. Dr. Wall from infectious disease will be back to Thursday to see how long he will receive antibiotics. Regarding the PEG tube, he is doing okay. So we will continue with PEG tube feedings, and on Thursday we are going to check her with Dr. Wall to see what antibiotics he is planning to do, and then he will be able to go back to his custodial. cc: Rodrigo Morales MD
[2017-06-06] MEDS ORDERED: NORVASC PO SCH (21:00)
[2017-06-07] MEDS: VANCOMYCIN 1,700 MG in NS 250 ML IV SCH ×2 (00:10→17:20)
[2017-06-07] MEDS: MAXIPIME IV SCH ×2 (06:04→16:29)
[2017-06-07] MEDS: D5W IV SCH ×2 (06:04→16:29)
[2017-06-07] MEDS: HUMALOG SUBQ SCH ×4 (06:04→21:41)
[2017-06-07 07:09] LABS: MANUAL DIFF NEEDED? NO
[2017-06-07 07:26] LABS: BASO% 0.6 % (0.0-0.8); EOS# 0.06 X1000 (0.0-0.7); EOS% 1.1 % (0.0-10.0); HEMATOCRIT 40.5 % (42.0-52.0); HEMOGLOBIN 13.6 g/dL (14.0-18.0); LYMPH# 1.27 X1000 (1.2-3.4); LYMPH% 23.4 % (20.5-51.1); MCH 29.1 PG (27-31); MCHC 33.6 g/dL (33-37); MCV 86.5 FL (81-99); MONO# 0.57 X1000 (0.11-0.59); MONO% 10.5 % (1.7-9.3); MPV 10.4 FL (7.4-10.4); NEUT% 64.4 % (42.2-75.2); PLT 213 X1000 (130-400); RBC 4.68 XMIL (4.7-6.1)
[2017-06-07 07:33] LABS: AGAP 13; BUN 16 mg/dL (8-22); CALCIUM 9.2 mg/dL (8.8-10.2); CHLORIDE 101 mmol/L (98-107); COSMO 277; POTASSIUM 4.2 mmol/L (3.5-5.1); SODIUM 137 mmol/L (136-145); TCO2 23 mmol/L (25-35)
[2017-06-07] MEDS: LANTUS SUBQ SCH (08:12)
[2017-06-07] MEDS: NORVASC GT SCH ×2 (08:12→21:42)
[2017-06-07] MEDS: PRINIVIL GT SCH (08:12)
[2017-06-07] MEDS: CLINIMIX E 4.25%-5% SOLUTION 1,000 ML IV SCH (10:26)
--- NOTE | 2017-06-07 14:46 | PROGRESS NOTE ---
DATE: 06/07/2017 SUBJECTIVE: The patient does not talk. Answered questions to but moving the head. Denies any abdominal pain, nausea, vomiting. No acute issues overnight as per nursing staff. OBJECTIVE: Vital Signs: Temperature 97.5 degrees, heart rate 93, respiratory 17, blood pressure 176/114, O2 saturation 96% on room air. General: This is a chronically ill-looking and frail 67-year-old male lying in bed in no acute distress. HEENT: Head is normocephalic, atraumatic. Neck: Supple. No JVD noted. No carotid bruits. Cardiovascular: S1, S2 heard. No murmurs, gallops, or rubs. Regular rate and rhythm. Respiratory: Clear bilaterally to auscultation. No work of breathing or using accessory muscles. Abdomen: Soft. PEG tube present, no signs of erythema around the PEG tube placed. Extremities: No clubbing, cyanosis, or edema. Decreased muscle mass. Neurological: Patient is awake, follows basic commands, residual left side hemiparesis from previous stroke. LABORATORY DATA: Reviewed. ASSESSMENT AND PLAN: 1. Staphylococcal epidermidis bacteremia. Patient is on vancomycin as per Dr. Wall' recommendation. 2. Urine tract infection secondary to Escherichia coli. Patient is on cefepime as per Dr. Wall' recommendation. 3. Dysphagia status post percutaneous endoscopic gastrostomy tube placement. Patient is on percutaneous endoscopic gastrostomy tube feedings at 30 mL/h. As per nursing he is tolerating that nutrition very well. He is getting 30 mL/h and also Clinimix 75 mL/h. At this point we are going to increase it to 40 the PEG feedings and will stop Clinimix. 4. Hyponatremia resolved. 5. Diabetes mellitus type 2. Will continue with sliding scale insulin. 6. History of cerebrovascular accident with left residual hemiparesis, aphagia, dysphagia aware. 7. Benign prostatic hypertrophy aware. 8. Nutritional status. Patient is on PEG tube feedings. 9. Code status. Full code. 10. Disposition. By now this patient is stable. Patient is being fed by PEG tube feedings. We are going to talk with Dr. Wall tomorrow for how long he is planning to continue with antibiotics and then will be able to send this patient back to his senior care. cc: Rodrigo Morales MD
[2017-06-08] MEDS: D5W IV SCH (05:29)
[2017-06-08] MEDS: MAXIPIME IV SCH (05:29)
[2017-06-08] MEDS: HUMALOG SUBQ SCH ×2 (06:26→11:09)
[2017-06-08 06:30] LABS: MANUAL DIFF NEEDED? NO
[2017-06-08 06:42] LABS: BASO% 0.4 % (0.0-0.8); EOS# 0.05 X1000 (0.0-0.7); EOS% 0.9 % (0.0-10.0); HEMATOCRIT 37.5 % (42.0-52.0); HEMOGLOBIN 12.5 g/dL (14.0-18.0); IMM GRAN# 0.02 X1000 (0.0-0.04); IMM GRAN% 0.4 % (0.0-0.5); LYMPH# 1.82 X1000 (1.2-3.4); LYMPH% 32.5 % (20.5-51.1); MCH 28.3 PG (27-31); MCHC 33.3 g/dL (33-37); MONO# 0.65 X1000 (0.11-0.59); MONO% 11.6 % (1.7-9.3); MPV 10.6 FL (7.4-10.4); NEUT% 54.2 % (42.2-75.2); PLT 224 X1000 (130-400); RBC 4.41 XMIL (4.7-6.1)
[2017-06-08 07:02] LABS: AGAP 11; ALBUMIN 3.4 g/dL (3.5-5.0); ALKALINE PHOSPHATASE 70 U/L (32-122); BUN 13 mg/dL (8-22); CALCIUM 9.6 mg/dL (8.8-10.2); CHLORIDE 100 mmol/L (98-107); COSMO 274; GOT 13 U/L (10-34); GPT 9 U/L (10-44); POTASSIUM 4.4 mmol/L (3.5-5.1); SODIUM 136 mmol/L (136-145); TCO2 25 mmol/L (25-35); TOTAL BILIRUBIN 0.17 mg/dL (0.20-1.00); TOTAL PROTEIN 7.8 g/dL (6.3-8.3)
[2017-06-08 07:30] VITALS: BP 117/73
[2017-06-08] MEDS: PRINIVIL GT SCH (08:56)
[2017-06-08] MEDS: LANTUS SUBQ SCH (08:56)
[2017-06-08] MEDS: NORVASC GT SCH (08:56)
[2017-06-08] MEDS: VANCOMYCIN 1,700 MG in NS 250 ML IV SCH (11:00)
[2017-06-08] MEDS ORDERED: NS 250 ML ONE (12:05)
[2017-06-08 12:32] LABS: INR 1.16; PROTIME 12.3 Seconds (9.2-11.7)
--- NOTE | 2017-06-08 12:46 | PROGRESS NOTE ---
DATE: 06/08/2017 PRESENT ILLNESS: The patient has an Escherichia coli urinary tract infection and Staphylococcus bacteremia. MEDICATIONS: This is day 7 of treatment with cefepime and day 10 treatment with vancomycin. PHYSICAL EXAMINATION: Vital Signs: Temperature is 97.9 degrees, pulse 94, respirations 20, blood pressure is 117/73. General: This is a fairly healthy-appearing, elderly male who is in no acute distress. Lungs: Clear to auscultation. Cardiovascular: Heart rate is regular. Abdomen: Soft and nontender. A tube is in place. Neurologic: The patient has a left hemipareses, and he is unable to speak. LABORATORY AND X-RAY STUDIES: The CBC for today shows a white count of 5600, hemoglobin 12.5 and platelet count 224,000. Creatinine is 0.6. GFR is greater than 60. Liver function studies are normal. ASSESSMENT AND PLAN: I plan to continue vancomycin for the patient's bacteremia for 10 more days and cefepime for his urinary tract infection 10 more days. I have written the orders have for the patient. He is going to the rehab facility today. Specifically, I put vancomycin 2 g IV every 24 hours. Cefepime 2 g IV every 12 hours both for 10 more days. I have ordered a CBC, creatinine and vancomycin trough level every Thursday and a creatinine level every . I have also ordered that the PICC should be removed after the last dose of vancomycin and cefepime. COMORBIDITIES: Include a left hemiparesis, aphasia, dysphagia, diabetes mellitus, benign prostatic hypertrophy and he is elderly. cc: Jhon Wall MD MTDD
--- NOTE | 2017-06-08 13:41 | DISCHARGE SUMMARY ---
ADMISSION DATE: 05/25/2017 DISCHARGE DATE: 06/08/2017 CONSULTATIONS: 1. Dr. Jhon Wall with Infectious Disease. 2. Dr. Kessler with Gastroenterology. PERTINENT PROCEDURES: 1. Head CT showed stable, advanced chronic changes. No definite acute intracranial pathology. 2. Modified barium swallow showed a very limited study due to the patient's condition. There was suboptimal positioning. The patient could only swallow on an adequate amount of contrast. Study was suboptimal in virtually nondiagnostic. No discrete aspiration with very small amount of contrast that could be administered. There did appear to be delayed swallowing reflex, however. 3. Second modified barium swallow showed markedly the delayed contrast bolus, propagation with extensive pooling of barium and aspiration of the pudding consistency barium. 4. Echocardiogram showed mild aortic valve stenosis and mild aortic regurgitation. Grade 1 left ventricular diastolic dysfunction. The EF is greater than 70%. 5. EGD with PEG tube placement performed by Dr. Lopez. DISCHARGE DIAGNOSES: 1. Escherichia coli urinary tract infection followed by infectious disease. Patient will continue with cefepime for 10 more days. 2. Staphylococcus bacteremia followed by Dr. Jhon Wall. The patient will continue on vancomycin for 10 more days. He will need a CBC and creatinine, vancomycin trough level every Thursday, and a creatinine level every and PICC line should be removed as of last dose of vancomycin and cefepime. 3. Dysphagia status post percutaneous endoscopic gastrostomy tube placement. Patient is on tube feeds, and tolerating well. Currently receiving glucose 1.5 at 40 mL/hour with 150 mL H2O flush q.8 hours. 4. Hyponatremia, resolved. 5. Diabetes mellitus type 2. Continue before meals and at hour of sleep blood sugars, Lantus and metformin. 6. Benign prostatic hypertrophy, aware. 7. Acute kidney injury, resolved. 8. Previous history of cerebrovascular accident with aphasia, dysphagia, and left sided hemiparesis, aware. 9. Physical deconditioning. Patient has worked with physical therapy. Will be discharged to rehab at [facility]. 10. Sepsis, resolved. 11. Bahai. HOSPITAL COURSE: Mr. Hebert is a 67-year-old gentleman with a history of CVA in the past with persistent left hemiparesis, aphasia and, dysphagia, who presented from [facility] with a reported fever of 103 degrees Fahrenheit. The patient is aphasic and unable to give any type of history. His family was at the bedside. The history was very limited. Apparently, he was sent for fever. When he got to the ED, his temperature was noted to be 98.9. However, when labs were checked, he was noted to have a sodium 162 and acute kidney injury with a creatinine of 1.5, mildly elevated white count, and a significant UTI. Family reported he had been more lethargic over the past few days and weeks. He has also been having significantly worse dysphagia. He coughs quite often when he eats. In the ED, his vital signs were stable. He was slightly tachycardic, but his blood pressure, pulse oximetry, and temperature were all within normal limits. He is admitted and treated for early sepsis. His lactic acid was within normal limits. He was started on IV fluids, IV antibiotics with cultures, and a head CT that did not show anything acute. Did have a barium swallow. The patient was unable to perform in the original one. They did a follow up on 05/28. It did show aspiration. GI was consulted. They initially wanted to continue with IV Clinimix for nutrition and treatment in supportive care. They did speak with the family about placing a PEG tube for tube feedings. After talking over his , he was going to be scheduled to have a PEG tube placement. However, his blood cultures came back positive 2/[address] Jhon Wlal was brought in with Infectious Disease. The patient was started on vancomycin and cefepime. Once he had clear blood cultures, he underwent a PEG tube placement with Dr. Lopez. They were able to initiate tube feeds. He has been tolerating that well. He has been working with physical therapy, and he will be going to rehab , where he will finish out 10 more days of IV antibiotics with vancomycin and cefepime under the direction of Dr. Jhon Wall. Again, the patient does not talk. He just answers the questions by moving his head. He is appropriate for discharge today. VITAL SIGNS: Temperature is 97.9 degrees, heart rate 94, respirations 20, blood pressure 117/73, O2 is 97% on room air. DISCHARGED DIET: Via PEG tube. He is N.P.O. He gets Glucerna 1.5 at 40 mL/ hour with 150 mL H2O q.8 hour flush. DISCHARGE MEDICATIONS: As per Dr. Nation. Please see MAR. FOLLOWUP: Mr. Hebert is being discharged to [facility]. He can follow up with his primary care physician, Dr. Ruffin. After rehab, he can return to the ED for any worsening of symptoms. DISCHARGE TIME: 30 minutes. Dictated by TOBIAS Arce for Rodrigo Morales MD Addendum: Patient seen and examined by myself. Agree with TOBIAS note. It reflects my assessment and plan. Patient admitted for encephalopathy secondary to an UTI. Also he was found to have an Staph bacteremia. Patient was doing ok after we started IV antibiotics. Also because of residual left hemiparesis and dysphagia from a previous stroke patient needed to to have a PEG tube placed. He was tolerating PEG feedings. He is supposed to continue with IV antibiotics as per Dr. Wall. A PICC line will be placed. Patient being discharged in stable condition. cc: Rodrigo Morales MD MTDD
--- NOTE | 2017-06-08 17:58 | PROGRESS NOTE ---
DATE: 06/08/2017 SUBJECTIVE: Patient is awake. His is at the bedside. Per nurse, he is tolerating his tube feedings without difficulty. No problems with PEG site or PEG tube. OBJECTIVE: Vital signs: Temperature 97.9, pulse 94, respirations 20, blood pressure 117/73. General: The patient is alert. No acute distress noted. He is nonverbal. Abdomen: Soft, nontender. PEG site is clean and intact. No redness or edema noted around PEG site. Per nurse, he is tolerating tube feedings well. ASSESSMENT AND PLAN: 1. Escherichia coli urinary tract infection. Following with Infectious Disease. He is having a PICC line placed for outpatient antibiotics. 2. Staphylococcus bacteremia. Following with Dr. Wall. 3. Dysphagia, history of CVA. The patient had an abnormal barium swallow. PEG placement was performed and patient is currently tolerating tube feedings well. Continue current management. Continue to follow with Infectious Disease regarding his antibiotics. There is plan for patient to be discharged to [facility]. Continue tube feedings. Raise head of bed during feedings. GI will be available as needed. I have discussed this case with Dr. Lopez. Dictated by TOBIAS Nazario for Riki Lopez MD cc: TOBIAS Oswald MD
[2017-06-09] MEDS ORDERED: VANCOMYCIN 2 GM in NS 500 ML IV SCH (11:00)
== END 2017-06-08 17:11 ==
LOC: SUPCPDRO → ED 04:25 → SUATTDRO 07:59 → 3N 07:59
PROVIDERS: ATTEND Internal Medicine